=== PATIENT | female | born 1940 | race African-American/Black ===

== ENCOUNTER 2016-11-01 12:48 | Emergency (ER) | payer MEDICARE, MEDICAID ==
[2016-11-01] MEDS ORDERED: ASPIRIN 81 MG TABLET, CHEWABLE PO ONE (13:34)
--- NOTE | 2016-11-01 13:36 | ER Document Report ---
ED Medical Screen (RME) - General Chief Complaint: Shortness Of Breath Stated Complaint: CHEST PAIN Time Seen by Provider: 11/01/16 13:34 TRAVEL OUTSIDE OF THE [place] IN LAST 30 DAYS: No - HPI Patient complains to provider of: Short of breath - Related Data Allergies/Adverse Reactions: No Known Allergies Allergy (Verified 07/23/15 09:34) Past Medical History - Social History Chew tobacco use (# tins/day): No Frequency of alcohol use: None Drug Abuse: None - Past Medical History Cardiac Medical History: Reports: Hx Hypercholesterolemia, Hx Hypertension Renal/ Medical History: Denies: Hx Peritoneal Dialysis GI Medical History: Reports: Hx Hiatal Hernia, Hx Ulcer - stomach Musculoskeltal Medical History: Reports Hx Arthritis Past Surgical History: Reports: Hx Orthopedic Surgery - DEIDRE knee replacement - Immunizations Hx Diphtheria, Pertussis, Tetanus Vaccination: Yes - tetanus last year Review of Systems - Review of Systems Respiratory: Cough, Short of breath Physical Exam - Vital signs Vitals: Temp Pulse Resp BP Pulse Ox 98.8 F 74 16 143/73 H 94 11/01/16 13:10 11/01/16 13:10 11/01/16 13:10 11/01/16 13:10 11/01/16 13:10 - Respiratory Respiratory status: No respiratory distress Chest status: Nontender Breath sounds: Normal Chest palpation: Normal Course - Vital Signs Vital signs: Temp Pulse Resp BP Pulse Ox 98.8 F 74 16 143/73 H 94 11/01/16 13:10 11/01/16 13:10 11/01/16 13:10 11/01/16 13:10 11/01/16 13:10
--- NOTE | 2016-11-01 14:28 | RADIOLOGY REPORT (SQ) ---
EXAM DESCRIPTION: CHEST SINGLE VIEW COMPLETED DATE/TIME: 11/01/2016 2:16 pm REASON FOR STUDY: sob COMPARISON: 04/26/2015. EXAM PARAMETERS: NUMBER OF VIEWS: One view. TECHNIQUE: Single frontal radiographic view of the chest acquired. RADIATION DOSE: NA LIMITATIONS: None. FINDINGS: LUNGS AND PLEURA: Linear parenchymal densities in the lung bases. No large pleural effusi on. No pneumothorax. MEDIASTINUM AND HILAR STRUCTURES: No masses. Contour normal. HEART AND VASCULAR STRUCTURES: Heart normal in size. Normal vasculature. BONES: No acute findings. HARDWARE: None in the chest. OTHER: No other significant finding. IMPRESSION: PROBABLE PLATELIKE ATELECTASIS IN THE LUNG BASES. TECHNICAL DOCUMENTATION: JOB ID: [id number]
[2016-11-01 14:33] LABS: ABSOLUTE EOSINOPHILS # (AUTO) 0.1 10^3/uL (0.0-0.6); ABSOLUTE LYMPHOCYTES (AUTO) 1.4 10^3/uL (0.5-4.7); ABSOLUTE MONOCYTES (AUTO) 0.9 10^3/uL (0.1-1.4); ABSOLUTE NEUT (AUTO) 4.2 10^3/uL (1.7-8.2); BASOPHILS % (AUTO) 0.4 % (0-2); EOSINOPHILS % (AUTO) 1.9 % (0-6); HEMATOCRIT 35.6 % (36.0-47.0); HEMOGLOBIN 12.7 g/dL (12.0-15.5); HGB HCT DIFFERENCE 2.5; LYMPHOCYTES % (AUTO) 20.9 % (13-45); MEAN CORPUSCULAR HEMOGLOBIN 30.4 pg (27.0-33.4); MEAN CORPUSCULAR HGB CONC 35.8 g/dL (32.0-36.0); MEAN CORPUSCULAR VOLUME 85 fl (80-97); MONOCYTES % (AUTO) 12.9 % (3-13); RED BLOOD COUNT 4.19 10^6/uL (3.72-5.28); RED CELL DISTRIBUTION WIDTH 13.4 % (11.5-14.0); SEGMENTED NEUTROPHILS % (AUTO) 63.9 % (42-78); WHITE BLOOD COUNT 6.6 10^3/uL (4.0-10.5)
[2016-11-01 14:37] LABS: PROTHROMBIN TIME 13.9 SEC (11.4-15.4)
[2016-11-01] MEDS ORDERED: CEFTRIAXONE 2 GM/D5W RTU 2 GM/50 ML RTUPB IV ONE (14:44)
[2016-11-01 14:52] LABS: ALANINE AMINOTRANSFERASE 29 U/L (9-52); ALBUMIN 3.7 g/dL (3.5-5.0); ALKALINE PHOSPHATASE 91 U/L (38-126); ANION GAP 10 (5-19); ASPARTATE AMINO TRANSFERASE 26 U/L (14-36); BILIRUBIN,DIRECT 0.4 mg/dL (0.0-0.4); BILIRUBIN,TOTAL 0.8 mg/dL (0.2-1.3); BLOOD UREA NITROGEN 20 mg/dL (7-20); CALCIUM 9.1 mg/dL (8.4-10.2); CARBON DIOXIDE 26 mmol/L (22-30); CHLORIDE 102 mmol/L (98-107); CREATINE KINASE 131 U/L (30-135); CREATININE RESULT 1.12 mg/dL (0.52-1.25); GLUCOSE 119 mg/dL (75-110); POTASSIUM 4.1 mmol/L (3.6-5.0); TOTAL PROTEIN 7.8 g/dL (6.3-8.2)
[2016-11-01 15:04] LABS: CREATINE KINASE MB 0.23 ng/mL (<4.55)
[2016-11-01 15:05] LABS: TROPONIN I < 0.012 ng/mL
--- NOTE | 2016-11-01 16:07 | ER Document Report ---
ED Respiratory Problem - General Chief Complaint: Shortness Of Breath Stated Complaint: CHEST PAIN Time Seen by Provider: 11/01/16 13:34 Mode of Arrival: Ambulatory Information source: Patient TRAVEL OUTSIDE OF THE [place] IN LAST 30 DAYS: No - HPI Patient complains to provider of: Hurts to breath Onset: Other - 3 DAYS Duration: Intermittent episodes Quality of pain: Dull Severity: Moderate Context: denies: Hx asthma, Hx CHF, Hx COPD Short of Breath: Mild Chest pain/discomfort: Center Cough: Nonproductive Sputum amount: None Associated symptoms: Chills, Hurts to breathe. denies: Fever - Related Data Allergies/Adverse Reactions: No Known Allergies Allergy (Verified 07/23/15 09:34) Past Medical History - Social History Smoking Status: Never Smoker Chew tobacco use (# tins/day): No Frequency of alcohol use: None Drug Abuse: None Family History: Reviewed & Not Pertinent - Past Medical History Cardiac Medical History: Reports: Hx Hypercholesterolemia, Hx Hypertension Renal/ Medical History: Denies: Hx Peritoneal Dialysis GI Medical History: Reports: Hx Hiatal Hernia, Hx Ulcer - stomach Musculoskeltal Medical History: Reports Hx Arthritis Past Surgical History: Reports: Hx Orthopedic Surgery - DEIDRE knee replacement - Immunizations Hx Diphtheria, Pertussis, Tetanus Vaccination: Yes - tetanus last year Hx Pneumococcal Vaccination: 02/15/09 Physical Exam - Vital signs Vitals: Temp Pulse Resp BP Pulse Ox 98.8 F 74 16 143/73 H 94 11/01/16 13:10 11/01/16 13:10 11/01/16 13:10 11/01/16 13:10 11/01/16 13:10 Course - Re-evaluation Re-evalutation: 11/01/16 17:30 Patient states she is feeling better, breathing more easily. Results of laboratory and radiographic studies discussed. Family inquired about possible hospital admission, I explained in detail that there appeared to be no major cardiac or pulmonary dysfunction that would justify inpatient treatment. She is encouraged to follow-up with her primary care provider in the next 3 or 4 days, and return to the emergency department for reevaluation if any unexpected worsening occurs. - Vital Signs Vital signs: Temp Pulse Resp BP Pulse Ox 98.8 F 74 16 143/73 H 100 11/01/16 13:10 11/01/16 13:10 11/01/16 13:10 11/01/16 13:10 11/01/16 13:34 - Laboratory Result Diagrams: 11/01/16 14:20 11/01/16 14:20 Laboratory results interpreted by me: 11/01/16 11/01/16 14:20 14:20 Hct 35.6 L Est GFR ( Amer) 57 L Est GFR (Non-Af Amer) 47 L Glucose 119 H - Diagnostic Test Radiology reviewed: Image reviewed, Reports reviewed - EKG Interpretation by Me EKG shows normal: Sinus rhythm. abnormal: QRS Complexes - PROB. INF. [place], OLD Rate: Normal Rhythm: NSR Voltage: Consistant with LVH Discharge - Discharge Clinical Impression: Bronchitis Condition: Stable Disposition: HOME, SELF-CARE Additional Instructions: REST, DRINK PLENTY OF FLUIDS. TAKE AZITHROMYCIN AND DEXAMETHASONE DIRECTED, BEGINNING TOMORROW (WEDNESDAY). CONTINUE OTHER MEDICATIONS USUAL. FOLLOW UP WITH YOUR PRIMARY CARE PROVIDER, CALL OFFICE TOMORROW FOR APPOINTMENT. RETURN TO E.R. IF YOU FEEL YOU ARE GETTING WORSE, ANY TIME. Prescriptions: Azithromycin [Zithromax 250 mg Tablet] 250 mg PO ASDIR PRN #6 tablet PRN Reason: Dexamethasone 4 mg PO DAILY #4 tablet
[2016-11-01] MEDS ORDERED: IPRATROPIUM/ALBUTEROL 0.5-2.5 MG/3 ML AMPUL NEB ONE (16:14)
[2016-11-01] MEDS ORDERED: DEXAMETHASONE 4 MG TABLET PO ONE ×2 (17:00→17:23)
[2016-11-01 18:54] VITALS: BP 132/70
--- NOTE | 2016-11-01 23:33 | EKG REPORT ---
SEVERITY:- ABNORMAL ECG - SINUS RHYTHM LEFT VENTRICULAR HYPERTROPHY PROBABLE INFERIOR INFARCT, AGE INDETERMINATE : Confirmed by: Oracio Jackson 01-Nov-2016 23:32:42
== END 2016-11-01 18:53 | disposition home or self-care (01) ==
LOC: ER 12:48
DX: J40 Bronchitis, not specified as acute or chronic (principal); R06.02 Shortness of breath; R07.9 Chest pain, unspecified
CPT/HCPCS: 93005; 94640; 99285; 96375; 96365; 36415; 87040; 82553; 82550; 85025; 85610; 80053; 84484; 83880; 71010; 93010; A9270 ×3; J0696; J7620

== ENCOUNTER 2017-03-26 09:46 | Emergency (ER) | payer MEDICARE, MEDICAID ==
--- NOTE | 2017-03-26 11:23 | ER Document Report ---
ED General - General Chief Complaint: Headache Stated Complaint: HEADACHE Time Seen by Provider: 03/26/17 11:20 Notes: Patient is a 76-year-old female presents emergency department a chief complaint of flulike symptoms with a headache for about 1 week. She describes her headache as pressure in a belt-like distribution around her head and right neck.shoulder that improved with Aleve and Advil. She also admits to nonproductive cough, nasal congestion as well as intermittent nausea and one episode of vomiting last Wednesday. She states that she has not been drinking a lot of fluids. She has been taking her home medications as directed. Difficulty swallowing, facial numbness, difficulty swallowing, vision changes. She denies any light or sound sensitivity. [facility] care is with [facility] Past medical history significant for vertigo, hypertension, history of osteoarthritis Past surgical history denies Social history denies any tobacco, alcohol or drug use. She does she denies any weakness, take home Startex for chronic knee pain. TRAVEL OUTSIDE OF THE [place] IN LAST 30 DAYS: No - Related Data Allergies/Adverse Reactions: No Known Allergies Allergy (Verified 03/26/17 09:47) Past Medical History - Social History Smoking Status: Never Smoker Family History: Reviewed & Not Pertinent - Past Medical History Cardiac Medical History: Reports: Hx Hypercholesterolemia, Hx Hypertension Renal/ Medical History: Denies: Hx Peritoneal Dialysis GI Medical History: Reports: Hx Hiatal Hernia, Hx Ulcer - stomach Musculoskeltal Medical History: Reports Hx Arthritis Past Surgical History: Reports: Hx Orthopedic Surgery - DEIDRE knee replacement - Immunizations Hx Diphtheria, Pertussis, Tetanus Vaccination: Yes - tetanus last year Hx Pneumococcal Vaccination: 02/15/09 Review of Systems - Review of Systems Constitutional: See HPI EENT: See HPI Cardiovascular: No symptoms reported Respiratory: No symptoms reported Gastrointestinal: See HPI Musculoskeletal: See HPI Neurological/Psychological: See HPI -: Yes All other systems reviewed and negative Physical Exam - Vital signs Vitals: Temp Pulse Resp BP Pulse Ox 98.2 F 61 20 169/75 H 97 03/26/17 09:58 03/26/17 09:58 03/26/17 09:58 03/26/17 09:58 03/26/17 09:58 - Notes Notes: PHYSICAL EXAM GENERAL: Alert, interacts well. HEAD: Normocephalic, atraumatic. EYES: Pupils equal, round, and reactive to light. Extraocular movements intact. ENT: Oral mucosa moist, tongue midline. NECK: Full range of motion. Supple. Trachea midline. LUNGS: Clear to auscultation bilaterally, no wheezes, rales, or rhonchi. No respiratory distress. HEART: Regular rate and rhythm. No murmurs, gallops, or rubs. EXTREMITIES: Moves all 4 extremities spontaneously pain reproducible along right shoulder and posterior neck. No edema, radial and dorsalis pedis pulses 2/ 4 bilaterally. No cyanosis. NEUROLOGICAL: Alert and oriented x4. Face symmetric. Tongue protrudes midline. Extraocular motions intact. Pupils are 2 mm and equally reactive. Normal speech, normal gait. 5 out of 5 strength in both the distal and proximal upper and lower extremities bilaterally. Sensation is grossly intact throughout. Finger to nose testing normal. Pronator drift normal. PSYCH: Normal affect, normal mood. SKIN: Warm, dry, normal turgor. No rashes or lesions noted. Course - Re-evaluation Re-evalutation: 03/26/17 12:26 Headache presentation is consistent with a tension type headache in the setting of a viral syndrome. Patient does not have any focal neurologic deficits, nuchal rigidity, vital signs are within normal limits no papilledema. Patient is otherwise no acute distress and hemodynamically stable. Low index for suspicion of acute subarachnoid hemorrhage, meningitis or mass. Low suspicion for acute life-threatening etiology with intact neuro exam therefore no additional imaging or laboratory testing is indicated. 03/26/17 12:43 Complete resolution of her headache after fioricet. Will discharge patient home with strict follow-up with PCP within the next week. - Vital Signs Vital signs: Temp Pulse Resp BP Pulse Ox 98.2 F 59 L 18 170/93 H 99 03/26/17 12:49 03/26/17 12:49 03/26/17 12:49 03/26/17 12:49 03/26/17 12:49 Discharge - Discharge Clinical Impression: Headache Qualifiers: Headache type: tension-type Headache chronicity pattern: unspecified pattern Intractability: not intractable Qualified Code(s): G44.209 - Tension-type headache, unspecified, not intractable Condition: Good Disposition: HOME, SELF-CARE Additional Instructions: You have been seen in the Emergency Department (ED) for a headache. Please use Tylenol (acetaminophen) or Motrin (ibuprofen) as needed for symptoms, but only as written on the box. As we have discussed, please follow up with your primary care doctor as soon as possible regarding today's ED visit and your headache symptoms. Call your doctor or return to the ED if you have a worsening headache, sudden and severe headache, confusion, slurred speech, facial droop, weakness or numbness in any arm or leg, extreme fatigue, or other symptoms that concern you. Prescriptions: Butalb/Acetaminophen/Caffeine [Fioricet (50-325-40 mg) Tablet] 1 tab PO Q4H #10 tab Forms: Elevated Blood Pressure Referrals: TAMMY ALCAZAR DO [Primary Care Provider] - Follow up in 3-5 days
[2017-03-26] MEDS ORDERED: BUTALB/ACETAMINOPHEN/CAFFEINE 1 TAB EACH PO ONE (11:37)
[2017-03-26 12:51] VITALS: BP 170/93
== END 2017-03-26 12:51 | disposition home or self-care (01) ==
LOC: ER 09:46
DX: G44.209 Tension-type headache, unspecified, not intractable (principal); M54.2 Cervicalgia; M25.511 Pain in right shoulder; R05 Cough; R09.81 Nasal congestion; R11.2 Nausea with vomiting, unspecified
CPT/HCPCS: 99283; A9270; J3490

== ENCOUNTER → 2017-08-26 | Day surgery (SDC) | payer MEDICARE, MEDICAID ==
[~2017-08-26] MED LIST: BUPIVACAINE HCL 0.5 % INJ/PF 30 ML SDV ONE; LIDOCAINE 1% INJ-PF (10 MG/ML) 30 ML SDV ONE
--- NOTE | 2017-08-26 10:24 | Operative Report ---
PREOPERATIVE DIAGNOSIS: Spondylolisis without myopathy or radiculopathy M47.818 POSTOPERATIVE DIAGNOSIS:Spondylolisis without myopathy or radiculopathy M47.818 PROCEDURE: 1. Radiofrequency Ablation of left L5 dorsal Ramus 2. Sacroiliac Joint Ablation - Lateral Branches of left S1, S2, S3 DATE OF PROCEDURE: August 26, 2017 ANESTHESIA: Local COMPLICATIONS: None CONSENT: A full description of the procedure was provided including benefits as well as possible complications. All questions were answered and informed consent was given and signed. ASA guidelines for fasting were verified prior to sedation. PROCEDURE IN DETAIL The patient was brought into the fluoroscopy suite and carefully assisted into the prone position on the fluoroscopy table and allowed to adjust to a position of comfort. A grounding pad was placed on the right thigh. The low back and buttocks were widely prepped with a chloraprep solution, allowed to air dry and draped in standard sterile surgical fashion. Local anesthesia was provided by 12 mL of 1 % lidocaine delivered with a 25 g needle. PROCEDURE #1: Radiofrequency Ablation of Dorsal Ramus of left L5. A 17g 100mm radiofrequency introducer needle was placed to the planned anatomic target, guided with intermittent fluoroscopy with a perpendicular approach, to terminally place at the left sacral ala. The stylets were removed and the radiofrequency probes with a 4mm active tip were then inserted. Needle tip position of the probes were verified in the AP, oblique, and lateral views. At each site, the medial branch nerve was stimulated at 2Hz to a maximum of 1- 2volts determined to finalize safe needle and electrode placement. The patient was awake and responsive during this portion of the procedure. Each target was anesthetized with 2mL of 2 % Sensorcaine anesthesia for lesioning and then each target was lesioned at 80 degrees Celsius for 2 minutes and 30 seconds. Tissue impedences were noted to be between 250 and 500 Ohms. PROCEDURE #2: Radiofrequency Ablation of left S1, S2, S3 Lateral Branches Using the AP fluoroscopic view for visualization of the lateral PSFA as defined by the pre-placed 27-gauge Quincke needles, appropriate skin starting positions were defined. Using the PSFA as a "clock-face", the positions were: S1; left = 1 and 5 oclock S2; left = 1 and 5 oclock S3; left = 3 oclock Using fluoroscopic guidance, a 17g introducer needle was inserted sequentially onto the target positions described above until the introducer tip touched the bony surface of the sacrum. The stylet was withdrawn from the introducer and the radiofrequency probe with a 4 mm active tip was fully inserted into the introducer. A lateral view was obtained for standard reference. At each of the targets, needle placement was verified with the use of multi-planar fluoroscopy. The needle tip position was approximately 7 - 10mm lateral to the PSFA as determined by using an Epsilon ruler. At each site, the lateral branch nerve was stimulated at 2 Hz to a maximum of 1- 2 volts determined to finalize safe needle and electrode placement. The patient was awake and responsive during this portion of the procedure. Each target was anesthetized with 2 mL of 2 % Sensorcaine anesthesia for lesioning and then each target was lesioned at 80 degrees Celsius for 2 minutes and 30 seconds. Tissue impedences were noted to be between 250- 500 Ohms. At the conclusion of the lesioning the needles were removed and bandages placed over the needle placement sites and the patient returned to the supine position on a stretcher and transported to the recovery room without hemodynamic, neurologic, or allergic reactions. Fluoroscopic images were printed for hard copy recording and digitally archived. FLUOROSCOPIC INTERPRETATION: Appropriate epidurogram obtained. Appropriate lesioning of the 10 targets noted. POST PROCEDURE EVALUATION: The patient was comfortable in the recovery room. The patient is aware that pain may worsen before remitting and 4 6 weeks may be required prior to the onset of pain relief. IMPRESSION: 1. Technically successful sacral lateral branch, lumbar dorsal ramus for denervation from L5-S3 on the left without complication. 2. RTC in 2 weeks. 3. Estimated Blood Loss: None 4. Fluoroscopy time: 30 seconds
== END ==
LOC: RAD 10:22
PROVIDERS: ATTEND Family Medicine
DX: M47.817 Spondylosis without myelopathy or radiculopathy, lumbosacral region (principal); M47.818 Spondylosis without myelopathy or radiculopathy, sacral and sacrococcygeal region
CPT/HCPCS: 64635; 64640 ×3; J3490 ×2